=== PATIENT | female | born 1935 | race Asian ===

== ENCOUNTER 2020-09-09 05:41 | Inpatient (IN) | payer MEDICARE, OTHER ==
[~2020-09-09] VITALS: Ht 157.5 cm; Wt 44.0 kg
[2020-09-09] VITALS (15 sets, daily range): BP systolic 80–138; BP diastolic 52–96
--- NOTE | 2020-09-09 05:41 | NUR ---
BIB EMS FROM [facility] C/O ALTERED, HYPOGLYCEMIA. PER EMS BS-70, GLUCAGON GIVEN BY SNF STAFF, RECHECKED BS-127. PT AAOX1, NO ACUTE DISTRESS NOTED, RESP EVEN AND UNLABORED. PLACE PT ON CARDIAC MONITORING, CONTINUOUS POX. PENDING ER MD MULLER.
--- NOTE | 2020-09-09 06:10 | NUR ---
STARTED SL 20 G TO RFA, BLOOD DRAWN AND SENT TO LAB.
[2020-09-09] MEDS ORDERED: IV NS 0.9% 500 ML BAG IV ONE (06:30)
[2020-09-09 06:44] LABS: BASOPHILS % (AUTO) 0.2 % (0.0-2.0); HEMATOCRIT 28 % (33-45); HEMOGLOBIN 8.9 g/dL (11.5-14.8); LYMPHOCYTES # (AUTO) 0.8 /CMM (0.8-4.8); LYMPHOCYTES % (AUTO) 7.4 % (20.0-44.0); MEAN CORPUSCULAR HGB CONC 32 g/dl (31.0-36.0); MEAN CORPUSCULAR VOLUME 100 fL (82-100); MONOCYTES # (AUTO) 0.5 /CMM (0.1-1.30); MONOCYTES % (AUTO) 4.3 % (2.0-12.0); NEUTROPHILS # (AUTO) 9.7 /CMM (1.8-8.9); NEUTROPHILS % (AUTO) 88.1 % (43.0-81.0); PLATELET COUNT (AUTO) 203 /CMM (150-450); RED BLOOD CELL COUNT(AUTO) 2.78 MIL/uL (4.0-5.2)
[2020-09-09] MEDS ORDERED: CEFEPIME 1 GM VIAL ONE (06:49)
[2020-09-09] MEDS ORDERED: VANCOMYCIN 1 GM VIAL ONE (06:49)
[2020-09-09 06:56] LABS: CALCIUM, SERUM 8.4 mg/dL (8.5-10.1); CREATININE 1.2 mg/dL (0.6-1.3); POTASSIUM 2.9 mmol/L (3.5-5.1)
[2020-09-09] MEDS ORDERED: VANCOMYCIN 1 GM in IV D5W 250 ML IV ONE (07:00)
[2020-09-09] MEDS ORDERED: CEFEPIME 1 GM in IV D5W 50 ML IV ONE (07:00)
[2020-09-09 07:09] LABS: BILIRUBIN,DIRECT 0.1 mg/dL (0.0-0.2); BILIRUBIN,TOTAL 0.4 mg/dL (0.2-1.0); TOTAL PROTEIN, SERUM 6.2 g/dL (6.4-8.2)
[2020-09-09] MEDS ORDERED: ASPIRIN 300 MG/SUPP.RECT RC ONE ×2 (07:30→08:03)
[2020-09-09] MEDS ORDERED: ATOR10TA PO (07:37)
[2020-09-09] MEDS ORDERED: CRAN3875 PO (07:37)
[2020-09-09] MEDS ORDERED: LEVO50TA8 PO (07:37)
[2020-09-09] MEDS ORDERED: ALBU1.257 IH (07:37)
[2020-09-09] MEDS ORDERED: BISA5TAB10 PO (07:37)
[2020-09-09] MEDS ORDERED: INSU100V11 SQ (07:37)
[2020-09-09] MEDS ORDERED: DOXE10CA2 PO (07:37)
[2020-09-09] MEDS ORDERED: LOSA25TA27 PO (07:37)
[2020-09-09] MEDS ORDERED: GUAI100S11 PO (07:37)
[2020-09-09] MEDS ORDERED: PRED2.5T PO (07:37)
[2020-09-09] MEDS ORDERED: GLUC1KIT IM (07:37)
[2020-09-09] MEDS ORDERED: NYST15OI2 TP (07:37)
[2020-09-09] MEDS ORDERED: CRAN425C6 PO (07:37)
[2020-09-09] MEDS ORDERED: ASCO-495 PO (07:37)
[2020-09-09] MEDS ORDERED: CLON0.1T PO (07:37)
[2020-09-09] MEDS ORDERED: FLUT1BLS IH (07:37)
[2020-09-09] MEDS ORDERED: MULT-447 PO (07:37)
[2020-09-09] MEDS ORDERED: FURO-144 PO (07:37)
[2020-09-09] MEDS ORDERED: LACT10SO PO (07:37)
[2020-09-09] MEDS ORDERED: METO25TA3 PO (07:37)
[2020-09-09] MEDS ORDERED: MAGN400O6 PO (07:37)
[2020-09-09] MEDS ORDERED: ZINC220C6 PO (07:37)
[2020-09-09] MEDS ORDERED: XEROFORM TD (07:37)
[2020-09-09] MEDS ORDERED: SENN-261 PO (07:37)
[2020-09-09] MEDS ORDERED: LACT1CAP71 PO (07:37)
[2020-09-09] MEDS ORDERED: DEXTROSE 50%-WATER 50 ML DISP.SYRIN ONE (07:41)
--- NOTE | 2020-09-09 07:54 | NUR ---
DR MONTGOMERY EXCHANGE CALLED. AWAITING CALL BACK.
[2020-09-09 07:58] LABS: THYROID STIMULATING HORMONE 7.163 uIU/mL (0.358-3.74)
--- NOTE | 2020-09-09 07:58 | NUR ---
COVID SWAB PCR DONE AND SENT TO LAB
[2020-09-09] MEDS ORDERED: IV NS 0.9% 1,000 ML BAG IV ONE (08:00)
[2020-09-09] MEDS ORDERED: DEXTROSE 50%-WATER 50 ML DISP.SYRIN IVP ONE (08:00)
[2020-09-09] MEDS ORDERED: POTASSIUM CL. PREMIX PERIPHER. 100 ML ONE (08:03)
[2020-09-09] MEDS ORDERED: ENOXAPARIN SODIUM 40 MG/0.4 ML DISP.SYRIN SQ ONE ×2 (08:10→08:30)
[2020-09-09] MEDS: POTASSIUM CL. PREMIX PERIPHER. 50 ML IV SCH ×2 (08:25→09:29)
[2020-09-09] MEDS: ACETAMINOPHEN 650 MG/SUPP.RECT RC ONE ×2 (08:40→08:51)
[2020-09-09] MEDS ORDERED: ACETAMINOPHEN 650 MG/SUPP.RECT RC ONE (08:47)
--- NOTE | 2020-09-09 08:56 | NUR ---
MEDICATED PER ERMD ORDER, PT SHAMIKA WELL. VSS. RR EVEN & UNLABORED. NAD NOTED AT THIS TIME. WILL CONT TO MONITOR.
--- NOTE | 2020-09-09 10:07 | NUR ---
REPORT GIVEN TO MIGUEL SAWYER FOR POPPY.
[2020-09-09] MEDS ORDERED: POTASSIUM CL. PREMIX PERIPHER. 50 ML IV SCH (10:30)
[2020-09-09] MEDS ORDERED: CLONIDINE HCL 0.1 MG TABLET PO PRN (10:30)
--- NOTE | 2020-09-09 10:30 | NUR ---
RN ADMITTING NOTE RECEIVED PATIENT VIA GURNEY FROM ED. PT IS AOX0, NON-VERBAL, JUST YELLS AND SCREAMS WHEN INTERACTED WITH, AND ON BED REST. SHE IS ON RA, TOLERATING WELL, NO SOB OR RESP DISTRESS. LUNGS SOUND CLEAR BILATERALLY. IV SITE ON R WRIST 20 G IS PATENT AND INTACT, R HAND AMPUTEE. SKIN IS NOT INTACT, SACRAL ST 2 AND NEREYDA SKIN TEAR PRESENT, WOUND CONSULT ORDERED. PT DOES NOT FOLLOW COMMANDS AND GOES IN AND OUT OF SLEEP. PT CONNECTED TO BEDSIDE MONITOR, SAFETY MEASURES HAVE BEEN IMPLEMENTED, R/O COVID ISO HAS BEEN IMPLEMENTED AND ENFORCED, WILL CONTINUE TO MONITOR FOR ANY CHANGES.
[2020-09-09] MEDS ORDERED: LACTULOSE 10 G/15 ML UDC (PYXIS) PO PRN (11:00)
[2020-09-09] MEDS ORDERED: GLUCAGON,HUMAN RECOMBINANT 1 MG/VIAL VIAL IM PRN (11:00)
[2020-09-09 11:37] LABS: PHOSPHORUS 2.6 mg/dL (2.5-4.9)
[2020-09-09 11:51] LABS: MAGNESIUM 1.9 mg/dL (1.8-2.4)
[2020-09-09] MEDS: LEVOTHYROXINE SODIUM 50 MCG TABLET PO SCH (11:52)
[2020-09-09] MEDS: METOPROLOL SUCCINATE 25 MG TAB.SR.24H PO SCH ×2 (11:52→21:00)
[2020-09-09] MEDS: FLUTICASONE/VILANTEROL 1 EACH BLST.W.DEV IH SCH (12:44)
[2020-09-09] MEDS: Potassium Chloride 40 MEQ in IV D5W 1,000 ML IV PRN (12:44)
--- NOTE | 2020-09-09 12:45 | NUR ---
RN NOTES 110O DOSE OF BREO ELLIPTA GIVEN LATE DUE TO PHARMACY DELAY
[2020-09-09] MEDS: ALBUTEROL HALF STRENGTH 1.25 MG/3 ML VIAL.NEB IH SCH ×2 (13:30→19:30)
--- NOTE | 2020-09-09 15:14 | NUR ---
RT NOTE PER COVID PROTOCOL NO TX GIVEN
--- NOTE | 2020-09-09 17:00 | NUR ---
RN NOTES PT BP FLUCTUATING BETWEEN LOW 90s and [address] MONTGOMERY, RECEIVED ORDER FOR 1L NS BOLUS, WILL CONTINUE TO MONITOR
[2020-09-09] MEDS ORDERED: IV NS 0.9% 1,000 ML IV ONE (17:30)
--- NOTE | 2020-09-09 18:00 | NUR ---
RN NOTES SPOKE WITH DR. MONTGOMERY, RECEIVED ORDER FOR STAT TROPONIN AND ACCU CHECK SCHEDULE
[2020-09-09] MEDS ORDERED: NOREPINEPHRINE 8 MG in IV NS 0.9% 242 ML IV PRN (18:30)
--- NOTE | 2020-09-09 19:06 | NUR ---
RN CLOSING NOTES PT IS RESTING COMFORTABLY IN BED AT THIS TIME. NO ACUTE CHANGES OCCURRED THROUGHOUT THE SHIFT, VITAL SIGNS ARE STABLE, PT NEEDS HAVE BEEN MET, DUE MEDS GIVEN ORDERED. SAFETY MEASURES HAVE BEEN IMPLEMENTED, CALL LIGHT IS WITHIN REACH, BED IS IN LOWEST AND LOCKED POSITION, SIDE RAILS UP X2, WILL ENDORSE TO NIGHTSHIFT RN FOR POPPY.
[2020-09-09] MEDS: DOXEPIN HCL 10 MG CAPSULE PO SCH (22:39)
[2020-09-10] VITALS (20 sets, daily range): BP systolic 81–127; BP diastolic 21–76
[2020-09-10] MEDS: ALBUTEROL HALF STRENGTH 1.25 MG/3 ML VIAL.NEB IH SCH ×4 (01:12→20:17)
[2020-09-10] MEDS: DEXTROSE 50%-WATER 50 ML DISP.SYRIN IV PRN ×2 (01:23→03:23)
[2020-09-10] MEDS: BLOOD SUGAR DIAGNOSTIC 1 EACH STRIP IN SCH ×5 (01:23→23:31)
[2020-09-10] MEDS: Potassium Chloride 40 MEQ in IV D5W 1,000 ML IV PRN (05:24)
[2020-09-10 06:36] LABS: BASOPHILS % (AUTO) 0.1 % (0.0-2.0); EOSINOPHILS % (AUTO) 0.6 % (0.0-6.0); HEMATOCRIT 22 % (33-45); HEMOGLOBIN 7.2 g/dL (11.5-14.8); LYMPHOCYTES # (AUTO) 0.7 /CMM (0.8-4.8); LYMPHOCYTES % (AUTO) 7.6 % (20.0-44.0); MEAN CORPUSCULAR HGB CONC 33 g/dl (31.0-36.0); MEAN CORPUSCULAR VOLUME 97 fL (82-100); MONOCYTES # (AUTO) 0.3 /CMM (0.1-1.30); MONOCYTES % (AUTO) 3.9 % (2.0-12.0); NEUTROPHILS # (AUTO) 7.8 /CMM (1.8-8.9); NEUTROPHILS % (AUTO) 87.8 % (43.0-81.0); PLATELET COUNT (AUTO) 151 /CMM (150-450); RED BLOOD CELL COUNT(AUTO) 2.26 MIL/uL (4.0-5.2); WHITE BLOOD COUNT (AUTO) 8.9 K/uL (4.3-11.0)
[2020-09-10 07:51] LABS: ALBUMIN 1.5 g/dL (3.4-5.0); BILIRUBIN,TOTAL 0.3 mg/dL (0.2-1.0); CALCIUM, SERUM 7.5 mg/dL (8.5-10.1); CREATININE 0.9 mg/dL (0.6-1.3); MAGNESIUM 1.3 mg/dL (1.8-2.4); PHOSPHORUS 1.4 mg/dL (2.5-4.9); POTASSIUM 3.6 mmol/L (3.5-5.1)
[2020-09-10] MEDS: LEVOTHYROXINE SODIUM 50 MCG TABLET PO SCH (07:54)
--- NOTE | 2020-09-10 08:08 | NUR ---
WOUND CARE CONSULT: REVIEWED CHART, NURSING DOCUMENTATION AND PHOTOS WHICH INDICATE SACRAL INTACT DEEP TISSUE INJURY AND SCARRING WELL DISCOLORATION AND SKIN TEARS TO ARMS, PRESENT ON ADMISSION. RECOMMEND SURGICAL CONSULT. DR MARTINEZ NOTIFIED OF CONSULT REQUEST. [facility] B[facility]. IN AGREEMENT WITH PLAN OF CARE. Addendum: 09/10/20 at 0810 by MATT HAIRSTON WNDNU DISCUSSED SKIN PROTECTION WITH NURSING STAFF.
--- NOTE | 2020-09-10 08:10 | NUR ---
RN OPENING NOTE RECEIVED PATIENT NON- VERBAL PT IS A0X0, JUST YELLS WITH EVERY TOUCH. SHE IS ON RA, TOLERATING WELL, NO SOB OR RESP DISTRESS. LUNGS SOUND CLEAR BILATERALLY. IV SITE ON R WRIST 20 G IS PATENT AND INTACT, R HAND AMPUTEE NOTED. SKIN IS NOT INTACT, SACRAL ST 2 AND NEREYDA SKIN TEAR PRESENT. PT DOES NOT FOLLOW COMMANDS AND GOES IN AND OUT OF SLEEP. PT CONNECTED TO BEDSIDE MONITOR, SAFETY MEASURES HAVE BEEN IMPLEMENTED BY HOSPITAL PROTOCOL, R/O COVID,BED IS IN THE LOWEST POSITION SIDE RAILS ARE UP X 2. WILL CONTUNIE TO MONITOR
[2020-09-10] MEDS: MULTIVIT W/MINERALS 1 TAB TABLET PO SCH (08:20)
[2020-09-10] MEDS ORDERED: Z GUARD REMEDY 2 OZ OINT TP PRN (08:30)
[2020-09-10] MEDS: FLUTICASONE/VILANTEROL 1 EACH BLST.W.DEV IH SCH (08:31)
[2020-09-10] MEDS: Z GUARD REMEDY 2 OZ OINT TP SCH (08:33)
[2020-09-10] MEDS: ENOXAPARIN SODIUM 30 MG/0.3 ML DISP.SYRIN SQ SCH (09:00)
--- NOTE | 2020-09-10 09:16 | NUR ---
RN NOTES CONTACTED DR MONTGOMERY ASKING IF IT IS OK TO GIVE LOVENOX BECAUSE [facility] AND HCT ARE GOING DOWN . HE SAID HOLD LOVENOX BUT OK TO GIVE BLOOD PRESSURE MEDICATIONS EVEN THOUGH BLOOD PRESSURE IS 91/59
[2020-09-10] MEDS: METOPROLOL SUCCINATE 25 MG TAB.SR.24H PO SCH ×2 (09:21→21:29)
--- NOTE | 2020-09-10 09:23 | NUR ---
RN NOTES GOING TO CRUSH MEDICATIONS DUE TO ALTERED STATUS. WAITING FOR SWALLOW EVALUATION
[2020-09-10] MEDS: Magnesium 1GM/D5W 100ML PREMIX 100 ML IV SCH ×6 (09:29→14:32)
[2020-09-10] MEDS ORDERED: Magnesium 1GM/D5W 100ML PREMIX 100 ML IV SCH (11:00)
[2020-09-10] MEDS: HYDROCORTISONE SOD SUCCINATE 100 MG/2 ML VIAL IV SCH ×2 (11:11→21:29)
[2020-09-10] MEDS: POTASSIUM PHOSPHATE MM 7.5 MMOL in IV NS 0.9% 100 ML IV SCH ×2 (12:24→15:37)
--- NOTE | 2020-09-10 13:30 | NUR ---
RN NOTES ORDER FOR TRANSFER TO [facility]
--- NOTE | 2020-09-10 16:44 | NUR ---
RN NOTES TRANSFERRED TO [facility] WITH VS WNL. TRANFERED WITH ALL MEDS, CHART AND WITH ACLS PROTOCOL
--- NOTE | 2020-09-10 16:55 | NUR ---
RN NOTES GAVE REPORT TO MILLER. PT IS IN STABLE CONDITION AND TRANSFERED WITH ACLS PROTOCOL
--- NOTE | 2020-09-10 17:00 | NUR ---
DIRECTOR OF RETAIL OPERATIONS NOTE: Patient arrived in unit accompanied by MIGUEL Muro. Patient appears in stable condition. on room air, no SOB and not respiratory. No pain noted on patient. IV site infiltration at R arm noted. will address issue. Infusion of d5w with 40meq KCL @ 80mls/hr @ L EJ site being tolerated well. Patent is very apprehensive with direct patient care. Refused repositioning/cleaning. No pain noted nor reported. Call light in reach. Bed locked, low and at semi-fernandez's position. Safety ensured and observed. Side rails up x3. Will continue to monitor.
[2020-09-10] MEDS: MEROPENEM 500 MG in IV NS 0.9% 50 ML IV SCH (18:34)
--- NOTE | 2020-09-10 19:20 | NUR ---
RN OPENING NOTES: Rec'd pt in bed, A&ox1. On room air, breathing even and unlabored. No SOB or resp distress noted. SR on tele monitor. IV site on left EJ patent and flushed w/ KCl 40meq in D5W infusing at 80ml/hr, tolerating well. Dressing c/d/i. No pain noted at this time. Safety measures in place. Will continue to monitor.
--- NOTE | 2020-09-10 19:58 | NUR ---
RN CLOSING NOTE: Patient remains in bed. Intermittently sleeping. Alert and oriented x1. On room air being tolerated well. No SOB and not in respiratory distress. saturation noted @ 95%. No pain noted on patient. Previous IV site on R arm still noted edematous, ice pack was applied and extremity elevated. IV site clean, dry, patent and intact. Infusion of d5w with 40meq KCL @ 80mls/hr being tolerated well. Dinner was refused, patent is very apprehensive with direct patient care. Refused repositioning/cleaning. No pain noted nor reported. Call light in reach. Bed locked, low and at semi-fernandez's position. Safety ensured and observed. Side rails up x3. Will continue to monitor. Due medications given. Treatment given as ordered. Endorsed to oncoming shift for POPPY.
[2020-09-10] MEDS: DOXEPIN HCL 10 MG CAPSULE PO SCH (22:00)
--- NOTE | 2020-09-10 22:50 | NUR ---
RN NOTE: 2200 dose of Doxepin non administered. Medication not available. Charge nurse and RN gambling supervisor aware.
[2020-09-10] MEDS: INSULIN REGULAR, HUMAN 100 UNIT/ML 3 ML VIAL SQ PRN (23:33)
[2020-09-11] VITALS (11 sets, daily range): BP systolic 95–147; BP diastolic 55–83
[2020-09-11] MEDS: ALBUTEROL HALF STRENGTH 1.25 MG/3 ML VIAL.NEB IH SCH ×4 (00:41→20:08)
[2020-09-11 05:13] LABS: BILIRUBIN,URINE NEGATIVE (NEGATIVE); BLOOD, URINE SMALL Ery/uL (NEGATIVE); COLOR,URINE YELLOW (YELLOW); LEUKOCYTE ESTERASE ,URINE NEGATIVE (NEGATIVE); NITRITE, URINE NEGATIVE (NEGATIVE); PROTEIN,URINE TRACE mg/dl (NEGATIVE); UGLUCOSE NEGATIVE (NEGATIVE); UROBILINOGEN,URINE 0.2 EU/dL (0.2)
[2020-09-11] MEDS: HYDROCORTISONE SOD SUCCINATE 100 MG/2 ML VIAL IV SCH ×3 (05:22→21:46)
[2020-09-11] MEDS: BLOOD SUGAR DIAGNOSTIC 1 EACH STRIP IN SCH ×4 (05:23→23:53)
[2020-09-11] MEDS: MEROPENEM 500 MG in IV NS 0.9% 50 ML IV SCH ×2 (05:23→20:03)
[2020-09-11 05:38] LABS: BACTERIA,URINE Few /HPF (None Seen); HYALINE CASTS, URINE Few /LPF (None Seen); RBC,URINE 0-2 /HPF (0-2); SQUAMOUS EPITHELIAL CELL,UR Few /HPF (None Seen); YEAST,URINE Few /HPF (None Seen)
--- NOTE | 2020-09-11 07:02 | NUR ---
RN CLOSING NOTES: No acute changes noted throughout shift. Remains on room air, no SOB or resp distress noted. Breathing even and unlabored. SR on tele monitor. Left EJ patent and flushing w/ 40meq KCl in D5W infusing at 80ml/hr, tolerating well. Dressing c/d/i. Kept clean/dry. All due meds given as ordered. Safety measures in place. Will endorse to oncoming nurse for POPPY.
[2020-09-11 07:19] LABS: BASOPHILS % (AUTO) 0.1 % (0.0-2.0); HEMATOCRIT 21 % (33-45); LYMPHOCYTES # (AUTO) 0.8 /CMM (0.8-4.8); MEAN CORPUSCULAR HGB CONC 32 g/dl (31.0-36.0); MEAN CORPUSCULAR VOLUME 99 fL (82-100); MONOCYTES # (AUTO) 0.3 /CMM (0.1-1.30); MONOCYTES % (AUTO) 3.3 % (2.0-12.0); NEUTROPHILS # (AUTO) 7.8 /CMM (1.8-8.9); NEUTROPHILS % (AUTO) 87.6 % (43.0-81.0); PLATELET COUNT (AUTO) 159 /CMM (150-450); RED BLOOD CELL COUNT(AUTO) 2.07 MIL/uL (4.0-5.2); WHITE BLOOD COUNT (AUTO) 8.8 K/uL (4.3-11.0)
[2020-09-11 07:29] LABS: CALCIUM, SERUM 7.6 mg/dL (8.5-10.1); MAGNESIUM 3.6 mg/dL (1.8-2.4); PHOSPHORUS 2.1 mg/dL (2.5-4.9); POTASSIUM 4.3 mmol/L (3.5-5.1)
--- NOTE | 2020-09-11 07:30 | NUR ---
KAPOK AND COTTON MACHINE OPERATOR NOTE: PT IN BED, AWAKE, BEING FED BY [employer]ORTATION [employer]. PT A/O X 1. PT ON MONITOR SHOWING SR. PT RA O2 SATURATION 100%. NO RESPIRATORY DISTRESS OR SOB. PT IS BEDBOUND WITH SACRAL REDNESS, NEREYDA SKIN TEARS, AND HAS RIGHT HAND AMPUTATION. PT DIET ON PUREED DIET. RN TO PERFORM SWALLOW SCREEN AND ADVANCE DIET TO CCHO 45G PER MD ORDER TODAY. PT HAS LEFT EJ RUNNING KCL 40 MEQ IN D5W @ 80 ML/HR. NO SIGNS OF INFECTION OR INFILTRATION. IV SITE REINFORCED WITH TAPE. BED IN LOCKED LOWEST POSITION, CALL LIGHT WITHIN REACH. ALL SAFETY MEASURES IN PLACE. WILL CONTINUE TO MONITOR CLOSELY.
[2020-09-11 07:43] LABS: HEMOGLOBIN 6.6 g/dL (11.5-14.8)
--- NOTE | 2020-09-11 08:11 | NUR ---
OBTAINED CONSENT FOR ONE UNIT PRBC FROM DAUGHTER ,WILL TRANSFUSED ONCE AVAILABLE ORDERED.
[2020-09-11] MEDS: LEVOTHYROXINE SODIUM 50 MCG TABLET PO SCH (08:37)
[2020-09-11] MEDS: METOPROLOL SUCCINATE 25 MG TAB.SR.24H PO SCH ×2 (08:37→21:46)
[2020-09-11] MEDS: MULTIVIT W/MINERALS 1 TAB TABLET PO SCH (08:39)
[2020-09-11] MEDS: ENOXAPARIN SODIUM 30 MG/0.3 ML DISP.SYRIN SQ SCH (08:40)
--- NOTE | 2020-09-11 08:46 | NUR ---
PATIETN MK SUERO TRIED 3X UNSUCCESSFUL OBTAINED MIDLINE,NURSING SUP MADE AWARE.
[2020-09-11] MEDS: Z GUARD REMEDY 2 OZ OINT TP SCH (08:47)
[2020-09-11] MEDS: FLUTICASONE/VILANTEROL 1 EACH BLST.W.DEV IH SCH (09:00)
[2020-09-11] MEDS: Potassium Chloride 40 MEQ in IV D5W 1,000 ML IV PRN (09:38)
[2020-09-11 10:14] LABS: LYMPHOCYTES % (MANUAL) 8 % (16-48); MONOCYTES % (MANUAL) 2 % (0-11.0); NEUTROPHILS % (MANUAL) 90 (42-76)
--- NOTE | 2020-09-11 11:31 | NUR ---
WELL SERVICE PUMP EQUIPMENT OPERATOR NOTE: LAB CALLED FOR CRITICAL VALUE OF PROCALCITONIN 10.87. MD HAILY MONTGOMERY MADE AWARE. AWAITING ORDERS
[2020-09-11] MEDS: INSULIN REGULAR, HUMAN 100 UNIT/ML 3 ML VIAL SQ PRN ×2 (12:31→17:20)
[2020-09-11] MEDS ORDERED: NEUTRA PHOS 1 POWD.PACKET NG ONE (15:30)
--- NOTE | 2020-09-11 15:55 | NUR ---
RETAIL SALES SPECIALIST NOTES, PATIENT ENDORSED TO PAM RN FOR CONTINUATION OF CARE, PATIENT JUST HAD MIDLINE PLACEMENT IN ETELVINA, ONE UNIT OF PRBC TO GIVE AT THIS TIME, ENDORSED TO PAM, NO DISTRESS NOTED.
--- NOTE | 2020-09-11 16:33 | NUR ---
DIRECTOR EXECUTIVE COMMUNICATIONS NOTE I ST UNIT PRBC STARTED ORDERED NO ADVERSE REACTION NOTED
--- NOTE | 2020-09-11 18:19 | NUR ---
ASSISTANT WINEMAKER NOTE UNABLE TO GIVE MERREM PATIENT HAS BLOOD TRANSFUSION
--- NOTE | 2020-09-11 19:08 | NUR ---
WEAVING LOOM OPERATOR NOTE CONT ON BLOOD TRANSFUSION ,ENDORSED TO PARKER RN TO ADMINISTER MERREM AFTER BLOOD COMPETED
--- NOTE | 2020-09-11 19:35 | NUR ---
RN NOTE RECEIVED PT T IN BED, A/O X 1. PT ON MONITOR SHOWING SR. PT RA O2 SATURATION 99%. NO RESPIRATORY DISTRESS OR SOB. PT LEFT EJ AND ETELV[place] MIDLINE PATENT AND INTACT. PT FINISHING 1 UNIT OF PRBC'S. BED LOCKED AND IN LOWEST POSITION, CALL LIGHT WITHIN REACH. ALL SAFETY MEASURES IN PLACE. WILL CONTINUE TO MONITOR PT
[2020-09-11] MEDS: DOXEPIN HCL 10 MG CAPSULE PO SCH (21:58)
[2020-09-12] VITALS: BP 140/72
[2020-09-12] MEDS: INSULIN REGULAR, HUMAN 100 UNIT/ML 3 ML VIAL SQ PRN ×3 (00:04→17:08)
[2020-09-12] MEDS: Potassium Chloride 40 MEQ in IV D5W 1,000 ML IV PRN (00:33)
[2020-09-12] MEDS: ALBUTEROL HALF STRENGTH 1.25 MG/3 ML VIAL.NEB IH SCH ×4 (01:41→20:01)
[2020-09-12 04:00] VITALS: BP 132/75
[2020-09-12] MEDS: HYDROCORTISONE SOD SUCCINATE 100 MG/2 ML VIAL IV SCH ×3 (04:29→16:38)
[2020-09-12] MEDS: MEROPENEM 500 MG in IV NS 0.9% 50 ML IV SCH ×2 (05:48→18:26)
[2020-09-12] MEDS: BLOOD SUGAR DIAGNOSTIC 1 EACH STRIP IN SCH ×4 (05:57→23:57)
[2020-09-12 06:48] LABS: BASOPHILS % (AUTO) 0.1 % (0.0-2.0); HEMATOCRIT 26 % (33-45); HEMOGLOBIN 8.4 g/dL (11.5-14.8); LYMPHOCYTES # (AUTO) 0.6 /CMM (0.8-4.8); LYMPHOCYTES % (AUTO) 5.1 % (20.0-44.0); MEAN CORPUSCULAR HGB CONC 33 g/dl (31.0-36.0); MEAN CORPUSCULAR VOLUME 96 fL (82-100); MONOCYTES # (AUTO) 0.4 /CMM (0.1-1.30); MONOCYTES % (AUTO) 3.2 % (2.0-12.0); NEUTROPHILS # (AUTO) 10.4 /CMM (1.8-8.9); NEUTROPHILS % (AUTO) 91.6 % (43.0-81.0); PLATELET COUNT (AUTO) 130 /CMM (150-450); RED BLOOD CELL COUNT(AUTO) 2.66 MIL/uL (4.0-5.2); WHITE BLOOD COUNT (AUTO) 11.3 K/uL (4.3-11.0)
[2020-09-12 06:57] LABS: CALCIUM, SERUM 7.4 mg/dL (8.5-10.1); MAGNESIUM 2.9 mg/dL (1.8-2.4)
--- NOTE | 2020-09-12 07:00 | NUR ---
RN NOTE PT AWAKE IN BED SR ON MONIOTR. PT CONTINUES TO BE ON RA O2 SATURATION 99%-100%. NO RESPIRATORY DISTRESS OR SOB. PT LEFT EJ AND ETELVINA MIDLINE PATENT AND INTACT. CALL LIGHT WITHIN REACH. ALL SAFETY MEASURES IN PLACE. ENDORSED TO AM RN TO F/U ON SPEECH EVAL.
[2020-09-12] MEDS ORDERED: PANTOPRAZOLE 40 MG TABLET.DR PO SCH (07:30)
[2020-09-12] MEDS: LEVOTHYROXINE SODIUM 50 MCG TABLET PO SCH (07:36)
--- NOTE | 2020-09-12 07:45 | NUR ---
Tele/RN - Assessment Patient in bed awake, A/O X 1-2, confused at times, requires frequent reorientation, denies chest pain, stable on room air, no apparent distress seen, tele shows SR. IVF D5W with 40 meq KCl at 80 ml/hr infusing well on the ETELVINA mid-line with no complications. No active bleeding seen, labs reviewed, H/H improved, level today was 8.4/26, low phosphorus 2.0, will notify MD for replacement. Continue strict intake and output monitoring. Fall and aspiration precautions maintained. Will continue with current medical management.
[2020-09-12 08:00] VITALS: BP 154/71
[2020-09-12] MEDS: FLUTICASONE/VILANTEROL 1 EACH BLST.W.DEV IH SCH (08:08)
[2020-09-12] MEDS: ENOXAPARIN SODIUM 30 MG/0.3 ML DISP.SYRIN SQ SCH (08:09)
[2020-09-12] MEDS: MULTIVIT W/MINERALS 1 TAB TABLET PO SCH (08:09)
[2020-09-12] MEDS: METOPROLOL SUCCINATE 25 MG TAB.SR.24H PO SCH ×2 (08:10→21:25)
[2020-09-12] MEDS: Z GUARD REMEDY 2 OZ OINT TP SCH (08:10)
[2020-09-12] MEDS ORDERED: NEUTRA PHOS 1 POWD.PACKET PO ONE (11:00)
[2020-09-12] MEDS: IV D5W 1,000 ML IV PRN (11:28)
--- NOTE | 2020-09-12 11:30 | NUR ---
Tele/RN - Notes Patient resting, alert to self, reality orientation given, needs attended.
[2020-09-12 12:00] VITALS: BP 143/89
[2020-09-12] MEDS ORDERED: PIPERACILLIN /TAZOBACTAM 3.375 G in IV D5W 50 ML IV ONE (14:00)
--- NOTE | 2020-09-12 14:05 | NUR ---
MS/RN - MD Order Ok to d/c telemetry and transfer to med-surg status with same orders.
[2020-09-12 16:00] VITALS: BP 129/72
--- NOTE | 2020-09-12 18:24 | NUR ---
MS/RN - End of shift summary Patient is awake, with periods of confusion, frequent reorientation provided, stable on room air, afebrile, denies pain, appetite improved, phosphorus replacement given. Straight cath done per order, urine specimen sent to the lab for culture. All needs attended. Discharge planning tomorrow. Will continue with current plan of care.
[2020-09-12 20:00] VITALS: BP 148/74
[2020-09-12] MEDS ORDERED: PIPERACILLIN /TAZOBACTAM 3.375 G in IV D5W 100 ML IV SCH (20:00)
--- NOTE | 2020-09-12 20:00 | NUR ---
MS RN OPENING NOTE RECEIVED PT IN BED. AWAKE AND A/0 X1. BREATHING EVEN AND UNLABORED WITH NO SOB OR ACUTE DISTRESS NOTED IN RA .02 SATURATION 100%. DENIES ANY PAIN OR DISCOMFORT. LEFT UPPER ARM MIDLINE NOTED. IV FLUIDS INFUSING WELL. DRESSING CLEAN AND DRY. ALL NEEDS RENDERED. SRX2 UP. BED IN LOWEST POSITION. CALL LIGHT WITHIN REACH. WILL CONTINUE TO MONITOR.
[2020-09-12] MEDS: DOXEPIN HCL 10 MG CAPSULE PO SCH (21:25)
[2020-09-13] MEDS: INSULIN REGULAR, HUMAN 100 UNIT/ML 3 ML VIAL SQ PRN (00:25)
[2020-09-13] MEDS: ALBUTEROL HALF STRENGTH 1.25 MG/3 ML VIAL.NEB IH SCH ×3 (01:44→14:21)
[2020-09-13 04:00] VITALS: BP 136/74
[2020-09-13] MEDS: BLOOD SUGAR DIAGNOSTIC 1 EACH STRIP IN SCH ×3 (05:41→16:07)
[2020-09-13] MEDS: MEROPENEM 500 MG in IV NS 0.9% 50 ML IV SCH (05:41)
--- NOTE | 2020-09-13 06:33 | NUR ---
MS RN CLOSING NOTE PT IN BED. AWAKE AND A/0 X1. BREATHING EVEN AND UNLABORED WITH NO SOB OR ACUTE DISTRESS NOTED. DENIES ANY PAIN OR DISCOMFORT. LEFT UPPER ARM MIDLINE NOTED. IV FLUIDS INFUSING WELL. ALL NEEDS RENDERED. SRX2 UP. BED IN LOWEST POSITION. REPOSITIONED. CALL LIGHT WITHIN REACH. WILL ENDORSE AM NURSE FOR CONTINUITY OF CARE
[2020-09-13 06:39] LABS: BASOPHILS # (AUTO) 0.1 /CMM (0.0-0.2); BASOPHILS % (AUTO) 0.7 % (0.0-2.0); EOSINOPHILS % (AUTO) 0.4 % (0.0-6.0); HEMATOCRIT 26 % (33-45); HEMOGLOBIN 8.7 g/dL (11.5-14.8); LYMPHOCYTES # (AUTO) 0.2 /CMM (0.8-4.8); LYMPHOCYTES % (AUTO) 2.6 % (20.0-44.0); MEAN CORPUSCULAR HGB CONC 33 g/dl (31.0-36.0); MEAN CORPUSCULAR VOLUME 96 fL (82-100); MONOCYTES # (AUTO) 0.1 /CMM (0.1-1.30); MONOCYTES % (AUTO) 1.3 % (2.0-12.0); NEUTROPHILS # (AUTO) 8.9 /CMM (1.8-8.9); PLATELET COUNT (AUTO) 106 /CMM (150-450); RED BLOOD CELL COUNT(AUTO) 2.74 MIL/uL (4.0-5.2); WHITE BLOOD COUNT (AUTO) 9.4 K/uL (4.3-11.0)
[2020-09-13] MEDS: IV D5W 1,000 ML IV PRN (06:48)
[2020-09-13 07:36] LABS: CALCIUM, SERUM 7.6 mg/dL (8.5-10.1); MAGNESIUM 2.4 mg/dL (1.8-2.4)
[2020-09-13 08:00] VITALS: BP 153/68
--- NOTE | 2020-09-13 08:00 | NUR ---
RN NOTES RECEIVED PATIENT IN THE BED A/O X2, [place]TH [place]OREAN SPEAKER, NO ACUTE RESPIRATORY DISTRESS, V/S TAKEN STABLE ADMINISTERED SCHEDULED MEDICATION. ASSIST EATING, ASSIST TURN AND REPOSTION Q 2 HR, INFUSING D5W AT 60 ML/HR ON LEFT UA MIDLINE INTACT. CALL LIGHT WITHIN TO REACH. WILL CONTINUED MONITORING.
[2020-09-13] MEDS ORDERED: FAMOTIDINE (20 MG) 20 MG TABLET PO SCH (09:00)
[2020-09-13] MEDS: MULTIVIT W/MINERALS 1 TAB TABLET PO SCH (09:17)
[2020-09-13] MEDS: METOPROLOL SUCCINATE 25 MG TAB.SR.24H PO SCH (09:17)
[2020-09-13] MEDS: HYDROCORTISONE SOD SUCCINATE 100 MG/2 ML VIAL IV SCH ×2 (09:18→16:07)
[2020-09-13] MEDS: FLUTICASONE/VILANTEROL 1 EACH BLST.W.DEV IH SCH (09:20)
[2020-09-13] MEDS: LEVOTHYROXINE SODIUM 50 MCG TABLET PO SCH (09:20)
[2020-09-13] MEDS: Z GUARD REMEDY 2 OZ OINT TP SCH (09:21)
[2020-09-13] MEDS ORDERED: K PHOS NEUTRAL 250 MG TABLET PO ONE (10:00)
[2020-09-13 11:18] LABS: BAND % (MANUAL) 2 % (0.0-5.0); LYMPHOCYTES % (MANUAL) 1 % (16-48); MONOCYTES % (MANUAL) 2 % (0-11.0); NEUTROPHILS % (MANUAL) 95 (42-76)
--- NOTE | 2020-09-13 11:56 | NUR ---
RN NOTES BS-107 MG/DL NO COVERAGE GIVEN, ALSO ADMINISTERED SCHEDULED MEDICATION, PATIENT TOTAL CARE, ASSIST TURN AND REPOSTION Q 2 HR. PATIENT WILL DISCHARGE BACK TO THE SNF PER HOSPITALIST.
[2020-09-13 12:00] VITALS: BP 138/67
[2020-09-13] MEDS ORDERED: NEUTRA PHOS 1 POWD.PACKET NG ONE (13:30)
[2020-09-13] MEDS ORDERED: MEROPENEM 500 MG in IV NS 0.9% 50 ML IV ONE (16:00)
--- NOTE | 2020-09-13 17:22 | NUR ---
EMBOSSED OR IMPRESSED LETTERING PAINTER NOTES PATIENT DISCHARGE AT THIS TIME GOING BACK TO THE SNF. PATIENT STABLE, V/S WNL, REFUSED PAIN. MED RECONCILIATION AND DISCHARGE NOTES REVIEWED AND EXPLAINED TO THE PATIENT. REPORT GIVEN SNF RN. RN VERBALIZED UNDERSTANDING. PATIENT HAS NO BELONGING, REFUSED SIGN PAPERWORK FAMILY AWARE OF DISCHARGE PLANING. PATIENT WILL FOLLOW SNF PLAN COORDINATOR. PATIENT TERMITE EXTERMINATOR HELPER BY AMBULANCE.
== END 2020-09-13 17:12 | DRG 637 ==
LOC: ER 05:49 → ICU 09:17 → TELE1 09-10 16:32 → MEDSG1 09-12 14:04
PROVIDERS: ADMIT Internal Medicine Nephrology; ATTEND Internal Medicine Nephrology
PROC: 30233N1 Transfusion of Nonautologous Red Blood Cells into Peripheral Vein, Percutaneous Approach (ICD-10-PCS; principal; 2020-09-11)
PROC: 05HY33Z Insertion of Infusion Device into Upper Vein, Percutaneous Approach (ICD-10-PCS; 2020-09-11)
DX: E11.649 Type 2 diabetes mellitus with hypoglycemia without coma (principal); A41.9 Sepsis, unspecified organism; I21.A1 Myocardial infarction type 2; J18.9 Pneumonia, unspecified organism; R64 Cachexia; E87.0 Hyperosmolality and hypernatremia; G92 Toxic encephalopathy; N17.9 Acute kidney failure, unspecified; G40.909 Epilepsy, unspecified, not intractable, without status epilepticus; I11.0 Hypertensive heart disease with heart failure; I48.0 Paroxysmal atrial fibrillation; I25.10 Atherosclerotic heart disease of native coronary artery without angina pectoris; E03.9 Hypothyroidism, unspecified; E87.6 Hypokalemia; E86.1 Hypovolemia; J44.9 Chronic obstructive pulmonary disease, unspecified; D69.6 Thrombocytopenia, unspecified; E78.5 Hyperlipidemia, unspecified; D64.9 Anemia, unspecified; E83.42 Hypomagnesemia; S51.811A Laceration without foreign body of right forearm, initial encounter; X58.XXXA Exposure to other specified factors, initial encounter; Y93.9 Activity, unspecified; Y92.129 Unspecified place in nursing home as the place of occurrence of the external cause; L89.156 Pressure-induced deep tissue damage of sacral region; I50.9 Heart failure, unspecified; E83.39 Other disorders of phosphorus metabolism; I25.2 Old myocardial infarction; Z79.01 Long term (current) use of anticoagulants; Z79.4 Long term (current) use of insulin
CPT/HCPCS: 36410; 36415; 70450-TC; 71045-TC; 80048-TC; 80053-TC; 80061-TC; 80076-TC; 81001; 82533; 82728-TC; 82962-TC; 83540-TC; 83605-TC; 83735-TC; 84100-TC; 84439-TC; 84443-TC; 84484-TC; 85025-TC; 85730-TC; 86850-TC; 87040-TC; 87081-TC; 87086-TC; 92526; 92611-TC; 93307-TC; 94799-TC; G0378; J0692; J1650; J1720; J1815; J2185; J2543; J3370; J3475; J3480; J3490; J7030; J7040; J7050; J7060; J7070; P9016-BL; U0003